=== PATIENT | female | born 1995 | race American Indian/Alaskan Native ===

== ENCOUNTER 2017-02-22 10:57 | Emergency (ER) | payer SELFPAY ==
--- NOTE | 2017-02-22 11:20 | Emergency Department Report ---
Stated Complaint: STOMACH PAIN Time Seen by Provider: 02/22/17 11:17 - HPI History of Present Illness: PT c/o headache x 3 days and vomiting three times since last night - sick contacts - ROS Review of Systems: + mid abd pain + gradual onset of frontal headache - dysuria - Exam Physical Exam: PT looks well, non toxic gcs 15 steady gait MSE screening note: Focused history and physical exam performed. Due to findings the following was ordered: labs ED Disposition for MSE Condition: Stable
[2017-02-22 11:21] VITALS: BP 119/52
[2017-02-22 11:36] LABS: Basophils % (Auto) 0.8 % (0.0-1.8); Eosinophils % (Auto) 3.8 % (0.0-4.3); Hematocrit 31.6 % (30.3-42.9); Hemoglobin 10.6 gm/dl (10.1-14.3); Mean Corpuscular HGB Conc 34 % (30-34); Mean Corpuscular Hemoglobin 23 pg (28-32); Mean Corpuscular Volume 67 fl (79-97); Platelet Count 198 K/mm3 (140-440); Red Blood Count 4.71 M/mm3 (3.65-5.03); White Blood Count 7.1 K/mm3 (4.5-11.0)
[2017-02-22 11:53] LABS: Alanine Aminotransferase 10 units/L (7-56); Albumin 4.1 g/dL (3.9-5); Albumin/Globulin Ratio 1.2 %; Alkaline Phosphatase 84 units/L (35-129); Anion Gap 14 mmol/L; BUN/Creatinine Ratio 13; Blood Urea Nitrogen 10 mg/dL (7-17); Calcium 8.9 mg/dL (8.4-10.2); Carbon Dioxide 27 mmol/L (22-30); Chloride 100.7 mmol/L (98-107); Glucose 115 mg/dL (65-100); Lipase 37 units/L (13-60); Potassium 3.8 mmol/L (3.6-5.0); Sodium 138 mmol/L (137-145); Total Protein 7.5 g/dL (6.3-8.2)
[2017-02-22 12:45] LABS: Bacteria,Urine 1+ /HPF (Negative); Bilirubin,Urine NEG (Negative); Blood,Urine LG (Negative); Ketones,Urine NEG (Negative); Leukocyte Esterase,Urine LG (Negative); Mucus,Urine FEW /HPF; Nitrite,Urine NEG (Negative); Protein,Urine <15 mg/dL mg/dL (Negative); Urobilinogen,Urine < 2.0 mg/dL (<2.0)
[2017-02-22] MEDS ORDERED: FIORICET PO ONE (13:27)
[2017-02-22] MEDS ORDERED: ZOFRAN ODT PO ONE (13:27)
--- NOTE | 2017-02-22 13:33 | Emergency Department Report ---
HPI - General Chief Complaint: Abdominal Pain Time Seen by Provider: 02/22/17 11:17 - HPI HPI: Room 33 The patient is a 21-year-old female presenting with a chief complaint of headache and abdominal pain. Patient states she has had a headache almost daily for the past 2 months. The patient states the headache has been intermittent for the past 3 days frontal in nature. Patient denies any recent trauma or fever. Last night the patient developed epigastric abdominal pain nausea vomiting. Patient states the abdominal pain has resolved. The patient guess her headache a score of 6/10 Location: [See above] Duration: 2 months Quality: Headache Severity:6/10 Modifying factors: [see above] Context: [see above] Mode of transportation: [not driving] ED Past Medical Hx - Past Medical History Previous Medical History?: No - Surgical History Past Surgical History?: No - Family History Family history: no significant - Social History Smoking Status: Never Smoker Substance Use Type: None (denies illicit drug use) - Medications Home Medications: Home Medications Medication Instructions Recorded Confirmed Last Taken Type Butalb/Acetamin/Caff 50-325-40 2 tab PO Q8HR PRN #20 tablet 02/22/17 Unknown Rx [Fioricet] Ondansetron [Zofran ODT TAB] 8 mg PO Q8HR #20 tab.rapdis 02/22/17 Unknown Rx Sulfamethoxazole/Trimethoprim 1 each PO BID #14 tablet 02/22/17 Unknown Rx [Bactrim DS TAB] ED Review of Systems ROS: Stated complaint: STOMACH PAIN Other details as noted in HPI Comment: All other systems reviewed and negative Constitutional: denies: chills, fever Eyes: denies: eye pain, eye discharge, vision change ENT: denies: ear pain, throat pain Respiratory: denies: cough, shortness of breath, wheezing Cardiovascular: denies: chest pain, palpitations Endocrine: no symptoms reported Gastrointestinal: abdominal pain, nausea, vomiting Genitourinary: denies: urgency, dysuria, discharge Musculoskeletal: denies: back pain, joint swelling, arthralgia Skin: denies: rash, lesions Neurological: headache Psychiatric: denies: anxiety, depression Hematological/Lymphatic: denies: easy bleeding, easy bruising Physical Exam - Physical Exam Vital Signs: Vital Signs 02/22/17 11:19 Temperature 98.2 F Pulse Rate 90 Respiratory 16 Rate Blood Pressure 119/52 O2 Sat by Pulse 100 Oximetry Physical Exam: GENERAL: The patient is well-developed well-nourished female sitting in chair not appear to be in acute distress. [] HEENT: Normocephalic. Atraumatic. Extraocular motions are intact. Patient has moist mucous membranes. NECK: Supple. No meningitic signs are noted. Trachea midline CHEST/LUNGS: Clear to auscultation. There is no respiratory distress noted. HEART/CARDIOVASCULAR: Regular. There is no tachycardia. There is no gallop rub or murmur. ABDOMEN: Abdomen is soft, nontender. Patient has normal bowel sounds. There is no abdominal distention. SKIN: There is no rash. There is no edema. There is no diaphoresis. NEURO: The patient is awake, alert, and oriented. The patient is cooperative. The patient has no focal neurologic deficits. The patient has normal speech and gait. Cranial nerves II through XII grossly intact, no drift MUSCULOSKELETAL: There is no evidence of acute injury. ED Course Vital Signs 02/22/17 11:19 Temperature 98.2 F Pulse Rate 90 Respiratory 16 Rate Blood Pressure 119/52 O2 Sat by Pulse 100 Oximetry ED Medical Decision Making - Lab Data Result diagrams: 02/22/17 11:23 02/22/17 11:23 Laboratory Tests 02/22/17 02/22/17 02/22/17 11:23 11:23 11:49 WBC 7.1 RBC 4.71 Hgb 10.6 Hct 31.6 MCV 67 L MCH 23 L MCHC 34 RDW 23.0 H Plt Count 198 Lymph % (Auto) 23.4 [place] % (Auto) 7.8 H Eos % (Auto) 3.8 Baso % (Auto) 0.8 Lymph # 1.7 [place] # 0.6 Eos # 0.3 Baso # 0.1 Seg Neutrophils % 64.2 Seg Neutrophils # 4.6 Sodium 138 Potassium 3.8 Chloride 100.7 Carbon Dioxide 27 Anion Gap 14 BUN 10 Creatinine 0.8 Estimated GFR > 60 BUN/Creatinine Ratio 13 Glucose 115 H Calcium 8.9 Total Bilirubin 0.40 AST 13 ALT 10 Alkaline Phosphatase 84 Total Protein 7.5 Albumin 4.1 Albumin/Globulin Ratio 1.2 Lipase 37 Urine Color Red Urine Turbidity Clear Urine pH 6.0 Ur Specific Lyle 1.015 Urine Protein <15 mg/dl Urine Glucose (UA) Neg Urine Ketones Neg Urine Blood Lg Urine Nitrite Neg Ur Reducing Substances Not Reportable Urine Bilirubin Neg Urine Ictotest Not Reportable Urine Urobilinogen < 2.0 Ur Leukocyte Esterase Lg Urine WBC (Auto) 27.0 H Urine RBC (Auto) 10.0 U Epithel Cells (Auto) 16.0 H Urine Bacteria (Auto) 1+ Urine Mucus Few Urine HCG, Qual Negative - Radiology Data Radiology results: report reviewed (CT head), image reviewed (CT head) CT head (read by radiologist)-no acute intracranial CT abnormality - Differential Diagnosis migraines, ICH, intracranial mass Critical care attestation.: If time is entered above; I have spent that time in minutes in the direct care of this critically ill patient, excluding procedure time. ED Disposition Clinical Impression: UTI (urinary tract infection), Frequent headaches Disposition: TO HOME OR SELFCARE Is pt being admited?: No Does the pt Need Aspirin: No Condition: Stable Instructions: Migraine Headache (ED), Acute Headache (ED), Abdominal Pain (ED) Additional Instructions: Return to the emergency department immediately should you develop worsening symptoms, fever, inability to tolerate food or liquid or any other concerns. Prescriptions: Butalb/Acetamin/Caff 50-325-40 [Fioricet] 2 tab PO Q8HR PRN #20 tablet PRN Reason: Headache Ondansetron [Zofran ODT TAB] 8 mg PO Q8HR #20 tab.rapdis Sulfamethoxazole/Trimethoprim [Bactrim DS TAB] 1 each PO BID #14 tablet Referrals: ERIKA NOYOLA MD [Staff Physician] - 3-5 Days (Dr. Noyola is a primary physician. Please follow-up with him to be established as a patient) AKBAR TURCIOS MD [Staff Physician] - 3-5 Days (Dr. Turcios is a neurologist. Please follow-up with him for further evaluation) Time of Disposition: 14:30
--- NOTE | 2017-02-22 14:18 | Cat Scan Report ---
CT HEAD WITHOUT CONTRAST INDICATION: Daily headaches for 2 months. COMPARISON: None similar at this institution. FINDINGS: Noncontrast head CT demonstrates normal, symmetric ventricles and sulci without acute or recent infarct, hemorrhage, mass effect or midline shift. No abnormal extra-axial fluid collections. Posterior fossa structures and basilar cisterns appear within normal limits. Clear imaged paranasal sinuses and mastoid air cells. Intact calvarium. Normal overlying scalp soft tissues. CONCLUSION: No acute intracranial CT abnormality, as described. Thank you for the opportunity to participate in this patient's care.
== END 2017-02-22 14:36 | disposition home or self-care (01) ==
LOC: ED 10:57
DX: R51 Headache (principal); N39.0 Urinary tract infection, site not specified
CPT/HCPCS: 36415; 70450; 80053; 81001; 81025; 83690; 85025; 99284; Q0162